=== PATIENT | female | born 2000 | race Caucasian/White ===

== ENCOUNTER 2023-11-18 18:31 | Emergency (ER) | payer SELFPAY ==
--- NOTE | 2023-11-18 18:30 | RT.EKG_ITS ---
APPROVED REPORT Exam: Resting ECG Reason for Exam: chest Patient Location: E HR:96 bpm ECG Measurements Heart Rate 96 AXIS NV 148 P 65 QRSd 88 QRS 117 QT 354 T 12 QTc 448 Conclusion Sinus rhythm...normal P axis, V-rate 60- 99 Right axis deviation...QRS axis (111,269) Nonspecific T abnormalities, anterior leads...T <-0.10mV, V2-V4 I have reviewed and interpreted ECG and agree with software generated interpretation.
[2023-11-18 18:33] VITALS: BP 121/99; PULSE 100; RESP 20; TEMP 36.7; O2SAT 97
[2023-11-18 18:46] VITALS: RESP 14
--- NOTE | 2023-11-18 18:50 | ED.GENADUL_ITS ---
Discharge Plan Disposition Patient Disposition: Home Condition: Stable Discharge Details Clinical Impression: Adverse effects of medication, Voluntary starvation Primary Care Provider: Ang Montez ED Provider: Emerita Doan Home Meds and New Rx's Prescriptions: No Action sertraline 50 mg tablet 75 mg PO DAILY Discharge Instructions Instructions: Sertraline (By mouth), Help Prevent Suicide (ED) Additional Instructions: This time I believe that your symptoms are combination of increased dose and not eating. Please consider eating food if you are taking your medication dosages. Otherwise decrease your dose back to 50 mg and speak with your primary care provider and your prescribing provider on Monday. Please call [facility] for any further thoughts of wanting to harm yourself. Follow up with primary care provider in 3-5 days. Return to ED sooner if any worsening or concerns. Referrals: [facility] [Provider Group] - Return if symptoms worsen Ang Montez [Primary Care Provider] - Discharge Data Discharge Date/Time-TO BE ENTERED AT DEPARTURE: 11/18/23 21:45 HPI General Mode of arrival: ambulatory . Date/Time Provider Initiated Documentation: 11/18/23 18:32 . Limitations to Documentation: no limitations . Information obtained by: patient, RN notes reviewed and old records reviewed . HPI Narrative: 23 year old female presents with ongoing symptoms over the last 2 weeks after increasing dose of sertraline by her PCP for increase in anxiety. Denies symptoms currently, also of note is patient has been on a hunger strike since Monday, and has not eaten since then. Patient also states. I tried to kill myself yesterday, I was standing on the bridge and I was going to jump off. I don't normally do that. Has been drinking water also took Ibuprofen [employer] for a headache. Related Data Home Medications Medication Instructions Recorded Confirmed sertraline 50 mg tablet 75 mg PO DAILY 11/18/23 11/18/23 Allergies Allergy/AdvReac Type Severity Reaction Status Date / Time No Known Allergies Allergy Unverified 11/18/23 18:55 General Stated Complaint: Chest Pain MARIE: 3 Review of Systems All systems reviewed & are unremarkable except as noted in HPI and below Constitutional Constitutional: Reports as per HPI and Reports headache(s) ENT Ears, Nose, Mouth, and Throat: Reports headache(s) Neurologic Neurologic: Reports headache(s) Exam Narrative Exam Narrative: Constitutional: Alert and oriented x3. Appears stated age. Normal body habitus. Head: Normocephalic, no trauma. Eyes: Pupils PERRL, Red reflex noted, EOM's intact. Eyelids symmetrical without lesions, discharge, or swelling. ENT: Bilateral TM's WNL, External ear normal to inspection, no mastoid TTP, swelling, or erythema, Nasal turbinates WNL, no nasal discharge. Normal dentition, Posterior pharynx WNL, no exudate. Chest: RRR, Normal S1, S2, distal pulses intact. Resp: Lungs clear to auscultation bilaterally, no wheezes, rales, or rhonchi. Abdomen: Soft, non-distended, Normoactive bowel sounds all 4 quads. Musculoskeletal: Normal gait, Moves all 4 extremities without difficulty. Skin: No suspicious rashes or lesions. Capillary refill less than 2 sec. Neurologic: Cranial nerves II-XII intact. Alert and oriented x 3. Motor: No deficits noted. Sensory: Intact bilaterally all 4 extremities. Hematologic/Lymphatic: No ecchymosis, no lymphadenopathy. Course Vital Signs Vital signs: Vital Signs Temperature 36.7 C 11/18/23 18:33 Pulse 100 H 11/18/23 18:33 Respiratory Rate 20 11/18/23 18:33 Blood Pressure 121/99 H 11/18/23 18:33 Pulse Oximetry 97 11/18/23 18:33 Temperature 36.7 C 11/18/23 18:33 Temperature Source Tympanic 11/18/23 18:33 Pulse 100 H 11/18/23 18:33 Respiratory Rate 20 11/18/23 18:33 Blood Pressure 121/99 H 11/18/23 18:33 Blood Pressure Position Sitting 11/18/23 18:33 Pulse Oximetry 97 11/18/23 18:33 Oxygen Delivery Method Room Air 11/18/23 18:33 Oxygen Flow Rate 0 11/18/23 18:33 Medical Decision Making 23 year old female presents with ongoing symptoms over the last 2 weeks after increasing dose of sertraline by her PCP for increase in anxiety. Denies symptoms currently, also of note is patient has been on a hunger strike since Monday, and has not eaten since then. Patient also states. I tried to kill myself yesterday, I was standing on the bridge and I was going to jump off. I don't normally do that. Has been drinking water also took Ibuprofen [employer] for a headache. Basic labs including CBC CMP UDS and urine ordered EKG done by ER staff upon patient's arrival. Mental health eval ordered due to patient reporting that she was having suicidal thoughts and tried to kill herself yesterday. 2033: [facility] performing psych eval per zoom at this time. Spoke with Samia with [facility], who will safety plan with patient. Most likely combination of increased medication dose along with decreased PO intake. Patient remained hemodynamically stable throughout the remainder of her stay. Patient discharged with friend. This text was generated using [employer] dictation system, please disregard any oddities of phrase or misspellings. Lab Data Lab results reviewed: Yes I reviewed the patient's lab results. Labs: Laboratory Tests Range/Units 11/18/23 19:32 WBC (4.4-10.8) 10^3/uL 9.95 RBC (3.93-5.22) 10^6/uL 4.49 Hgb (11.2-15.7) g/dL 13.2 Hct (36.0-46.0) % 37.3 MCV (80-95) fL 83 MCH (27.0-33.0) pg 29.4 MCHC (32.0-36.0) % 35.4 RDW (11.7-14.6) % 11.5 L Plt Count (130-400) 10^3/uL 294 MPV (8.0-11.0) fL 10.1 Immature Gran % % 0.2 Neutrophils % % 57.6 Lymphocytes % % 31.6 Monocytes % % 7.9 Eosinophils % % 2.0 Basophils % % 0.7 Nucleated RBC % (0.0-0.3) % 0.0 Absolute Neutrophils (1.2-6.7) 10^3/uL 5.73 Absolute Lymphocytes (1.2-3.4) 10^3/uL 3.14 Absolute Monocytes (0.1-0.8) 10^3/uL 0.79 Absolute Eosinophils (0.0-0.7) 10^3/uL 0.20 Absolute Basophils (0.0-0.2) 10^3/uL 0.07 Sodium (136-145) mmol/L 140 Potassium (3.5-5.1) mmol/L 3.9 Chloride (98-107) mmol/L 103 Carbon Dioxide (21.0-32.0) mmol/L 24.7 Anion Gap (3-11) mmol/L 12.3 H BUN (7-18) mg/dL 6 L Creatinine (0.55-1.02) mg/dL 0.7 Est GFR (CKD-EPI 2020) (mL/min/1.73m2) 126.11 Glucose (74-106) mg/dL 70 L Calcium (8.5-10.1) mg/dL 9.1 Total Bilirubin (0.2-1.0) mg/dL 1.2 H AST (15-37) U/L 32 ALT (14-59) U/L 18 Alkaline Phosphatase (46-116) U/L 67 Total Protein (6.4-8.2) g/dL 7.7 Albumin (3.4-5.0) g/dL 4.0 Quality:SDOH Health Related Social Needs: No Data to Display PFSH All Active Problems (Updated 11/18/23 @ 21:26 by Emerita Doan NP) Voluntary starvation (Acute) Adverse effects of medication (Acute) Social History Smoking/Tobacco Use Status: Never Smoking risk assessment performed?: Yes Alcohol Intake: current Alcohol Intake frequency: a few times a month Alcohol type: beer, wine and hard liquor Substance use type: does not use Housing: apartment Do you feel safe at home: Yes Do you feel safe in your relationship?: Yes
[2023-11-18 19:38] LABS: Abs Immature Grans 0.02 10^3/uL (0.0-0.06); Absolute Basophil Count 0.07 10^3/uL (0.0-0.2); Absolute Lymphocyte Count 3.14 10^3/uL (1.2-3.4); Absolute Monocyte Count 0.79 10^3/uL (0.1-0.8); Absolute Neutrophil Count 5.73 10^3/uL (1.2-6.7); Basophils % 0.7 %; HCT 37.3 % (36.0-46.0); HGB 13.2 g/dL (11.2-15.7); Immature Grans % 0.2 %; Lymphocytes % 31.6 %; MCH 29.4 pg (27.0-33.0); MCHC 35.4 % (32.0-36.0); MCV 83 fL (80-95); MPV 10.1 fL (8.0-11.0); Monocytes % 7.9 %; Neutrophils % 57.6 %; Platelet Count 294 10^3/uL (130-400); RBC 4.49 10^6/uL (3.93-5.22); RDW 11.5 % (11.7-14.6); RDW-SD 34.5 fL; WBC 9.95 10^3/uL (4.4-10.8)
[2023-11-18 19:51] LABS: ALT 18 U/L (14-59); AST 32 U/L (15-37); Alkaline Phosphatase 67 U/L (46-116); Anion Gap 12.3 mmol/L (3-11); BUN 6 mg/dL (7-18); Bilirubin, Total 1.2 mg/dL (0.2-1.0); CO2 24.7 mmol/L (21.0-32.0); CREATININE 0.7 mg/dL (0.55-1.02); Calcium 9.1 mg/dL (8.5-10.1); Chloride 103 mmol/L (98-107); Estimated GFR 126.11 (mL/min/1.73m2); Glucose 70 mg/dL (74-106); Potassium 3.9 mmol/L (3.5-5.1); Sodium 140 mmol/L (136-145); Total Protein 7.7 g/dL (6.4-8.2)
[2023-11-18 21:41] VITALS: BP 108/60; PULSE 80; RESP 16; TEMP 36.6; O2SAT 98
[2023-11-18 23:02] LABS: *AMPHETAMINES SCREEN URINE Negative (Negative); *BARBITURATES SCREEN URINE Negative (Negative); *BENZODIAZEPINES SCREEN URINE Negative (Negative); Cannabinoids THC Negative (Negative); Cocaine Screen,Urine Negative (Negative); METHADONE URINE SCREEN Negative (Negative); OPIATES URINE SCREEN Negative (Negative)
[2023-11-18 23:03] LABS: Tricyclic Antidepressants Negative (Negative)
--- NOTE | 2023-11-19 11:50 | PDOC.MHCN_ITS ---
Date of service: 11/18/23 Time of Service: 11:50 PHQ-9 Over the last 2 weeks, how often have you been bothered by any of the following problems? 1. Little interest or pleasure in doing things: more than half the days 2. Feeling down, depressed, or hopeless: several days 3. Trouble falling or staying asleep, or sleeping too much: nearly every day 4. Feeling tired or having little energy: nearly every day 5. Poor appetite or overeating: not at all 6. Feeling bad about yourself - or that you are a failure or have let yourself and your family down: several days 7. Trouble concentrating on things, such as reading the newspaper or watching television: nearly every day 8. Moving or speaking so slowly that other people could have noticed? - Or the opposite - being so fidgety or restless that you have been moving around a lot more than usual: more than half the days 9. Thoughts that you would be better off or of hurting yourself in some way: several days Total score: 16 If you checked off any problems, how difficult have these problems made it for you to do your work, take care of things at home, or get along with other people?: somewhat difficult Source: Developed by Drs. Mitchell Perales, Lauren Ward, Charly Castaneda and colleagues, with an educational zully from [employer]. Suicide Severity Rate CSSRS Have you wished you were or wished you could go to sleep and not wake up?: Yes Have you actually had any thoughts of killing yourself?: Yes CSSRS2 Have you been thinking about how you might do this?: Yes Have you had these thoughts and had some intention of acting on them?: Yes Have you started to work out or worked out the details of how to kill yourself? Do you intend to carry out this plan?: Yes CSSRS3 Have you ever done anything, started to do anything or prepared to do anything to end your life?: Yes CSSRS4 Was this within the past three months?: Yes Screening Score Total Score: 8 Screening: Positive Mental Health Emergency Note Release [facility] release signed:: Yes Reason for Visit The client is brand new to [facility] engaging in opening paperwork during this assessment. The client denied history of hospitalizations and is not receiving any ongoing current treatments other than with their medical provider who also prescribes their psychiatric medication's. The client arrived to the emergency department this evening with chest pain that they suspected were side effects of the medication's. The client recently had an increase in sertraline to 75 mg. In the last 2 weeks has the pt presented for ES prior to today?: Unknown Client Information Client is: New Well Housed: Yes Non Suicidal Self Injury Current: No History: No Safety Risk/Harm to Self or Others Current Ideation to Harm Self or Others: No Risk: Does risk to harm exist?: No Risk: Low Risk Duty to warn indicated: No Asssessment/Mental Status Appearance: Well groomed Attitude: Cooperative and Friendly Behavior: Unremarkable Speech: Normal Affect: Normal Mood: Stressed and Anxious Thought process: Goal directed Hallucinations: No Delusions: No Attention: Unremarkable Perception: Not impaired Orientation: Fully orientated Memory: Intact Insight: Good Judgement: Good Neurovegetative Symptoms Sleep: Increase Appetitie: Decrease Interests: No change Energy: No change Libido: Not applicable Substance Use: Do you use nicotine?: No Have you used substances in the last 7 days?: No Additional Issues: Assaultive/Threatening Behavior: No Medical Concerns: No Client engaged in active self harm w/weapon: No Threatening to run away: No Child reported abuse/neglect: No Voluntarily presenting for services: Yes Domestic violence is a concern: No Extreme Psychosis or extreme behavior is present: No Impression Client denied any previous attempts, however did report a single episode of thought with intent and act to by suicide on November 17, 2023. The client reported that yesterday something came over me and I went into a deep sense of hopelessness and guilt and went to a bridge to jump. Their fear of heights and trauma response to freeze is what pulled them out of that state enough to call a friend for support. They believe that this may be a side effect of their Sertraline increase. The client is not interested in inpatient treatment and does not criteria for referrals. The client is a born female who identifies as non-binary they use them pronouns and employed by the [employer]. All underrepresented categories were honored during this assessment. The client presents calm, rational, engaged and makes good eye contact through the assessment. Resources [facility] reviewed and given:: Psychiatric hospital and [facility] Plan/Disposition Recommended Disposition: PCP/Office visit. Plan: The client engaged in a safety plan. They were reminded on campus resources like the [employer] as well as Psychiatric hospital and [facility] should they need additional crisis supports. This clinician informed the client that not eating and taking psychiatric or any other kind of medication could have lead to the sudden onset of SI as well as physical symptoms being described today. Suggested they follow up with their PCP to discuss further. Person reported agreement to plan: Yes Reports/communication Outcome discussed with: ED/Personnel
== END 2023-11-18 21:45 | disposition home or self-care (01) ==
PROVIDERS: Emergency Provider Registered Nurse Emergency; PCP Internal Medicine
DX: R07.9 Chest pain, unspecified (principal); F41.9 Anxiety disorder, unspecified; T43.225A Adverse effect of selective serotonin reuptake inhibitors, initial encounter; T73.0XXA Starvation, initial encounter
CPT/HCPCS: 00123; 80053; 80307; 81025; 93005; 96127; 99284; 85025; 93010